=== PATIENT | female | born 1950 | race Caucasian/White ===

== ENCOUNTER 2017-08-12 19:49 | Inpatient (IN) | payer MEDICARE, MEDICAID ==
--- NOTE | 2017-08-12 20:24 | ED Physician Chart ---
ED Chief Complaint/HPI - Patient Information Date Seen:: 08/12/17 Time Seen:: 20:00 Chief Complaint:: Agitation History of Present Illness:: onset x 2 days of agitation and hostile behavior; no report of SIs, H/As, neck pain, C/P, SOB, Abd. Pain, A/N/V/D/C, fever, chills, or urinary s/s Allergies:: Allergies Allergy/AdvReac Type Severity Reaction Status Date / Time carbamazepine [From Tegretol] Allergy Verified 08/12/17 20:08 Historian:: Patient, EMS Review:: Nurse's Note Reviewed, Old Chart Reviewed, EMS run form Reviewed ED Review of Systems - Review of Systems General/Constitutional: No fever, No chills, No weight loss, No weakness, No diaphoresis, No edema, No loss of appetite Skin: No skin lesions, No rash, No bruising Head: No headache, No light-headedness Eyes: No loss of vision, No pain, No diplopia ENT: No earache, No nasal drainage, No sore throat, No tinnitus Neck: No neck pain, No swelling, No thyromegaly, No stiffness, No mass noted Cardio Vascular: No chest pain, No palpitations, No PND, No orthopnea, No edema Pulmonary: No SOB, No cough, No sputum, No wheezing GI: No nausea, No vomiting, No diarrhea, No pain, No melena, No hematochezia, Constipation, No hematemesis G/U: No dysuria, No frequency, No hematuria, No nacturia 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: No vaginal discharge, No abnormal vaginal bleed, No contraction Musculoskeletal: No bone or joint pain, No back pain, No muscle pain Endocrine: No polyuria, No polydipsia Psychiatric: Prior psych history, No depression, Anxiety, No suicidal ideation, No homicidal ideation, No auditory hallucination, No visual hallucination Hematopoietic: No bruising, No lymphadenopathy Allergic/Immuno: No urticaria, No angioedema Neurological: No syncope, No focal symptoms, No weakness, No paresthesia, No headache, No seizure, No dizziness, No confusion, No vertigo ED Past Medical History - Past Medical History Obtainable: Yes Past Medical History: HTN, DM, Dyslipidemia, PUD/GERD, Thyroid disorder Family History: Diabetes Melitus, HTN Social History: Non Smoker, No Alcohol, No Drug Use, Single, Care Facility Surgical History: Hysterectomy Psychiatricy History: Bipolar Medication: Reviewed Family Medical History - Family Member Mother History Unknown: Yes ED Physical Exam - Physical Examination General/Constitutional: Awake, Well-developed, well-nourished, Alert, No distress, GCS 15, Non-toxic appearing, Ambulatory Head: Atraumatic Eyes: Lids, conjuctiva normal, PERRL, EOMI Skin: Nl inspection, No rash, No skin lesions, No ecchymosis, Well hydrated, No lymphadenopathy ENMT: External ears, nose nl, TM canals nl, Nasal exam nl, Lips, teeth, gums nl , Oropharynx nl, Tonsils nl Neck: Nontender, Full ROM w/o pain, No JVD, No nuchal rigidity, No bruit, No mass, No stridor Respiratory: Nl effort/Exclusion, Clear to Auscultation, No Wheeze/Rhonchi/Rales Cardio Vascular: RRR, No murmur, gallop, rubs, NL S1 S2, Carotid/Femoral/Distal pulses equal bilaterally GI: No tenderness/rebounding/guarding, No organomegaly, No hernia, Normal BS's, Nondistended, No mass/bruits, No McBurney tenderness : No CVA tenderness Extremities: No tenderness or effusion, Full ROM, normal strength in all extremities, No edema, Normal digits & nails Neuro/Psych: Alert/oriented, DTR's symmetric, Normal sensory exam, Normal motor strength, Judgement/insight normal, Mood normal, Normal gait, No focal deficits Other Neuro/Psych comments:: + Psychomotor Agitation; no SIs; Mood/Affect: Stable Misc: Normal back, No paraspinal tenderness ED Labs/Radiology/EKG Results - Lab Results Comments:: H/H: 6.7/20.1 - EKG Interpretations EKG Time:: 20:14 Rate & Rhythm: 90; NSR Comments:: non-specific st-t changes ED Septic Shock - . Is Septic Shock (SBP<90, OR Lactate>4 mmol\L) present?: No ED Reassessment (Disposition) - Reassessment Reassessment Condition:: Improved - Diagnosis Diagnosis:: Severe Anemia - Aftercare/Follow up Instructions Aftercare/Follow-Up Instructions:: Counseled pt regarding lab results/diagnosis & need follow up, Counseled pt & family regarding lab results/diagnosis & need follow up - Patient Disposition Discharge/Transfer:: Acute Care w/in this hosp Accepting Physician:: Dr. Davey Time Called:: 2144 Time Responded:: 21:45 Admitted to:: Med/Surg Spoke to:: Dr. Davey Admitting Medical Physician:: Dr. Davey Condition at Disposition:: Stable, Improved
[2017-08-12 20:36] LABS: % BASOPHILS 1.4 % (0.0-2.0); % EOSINOPHILS 3.9 % (0.0-5.0); % LYMPHOCYTES 21.3 % (20.0-50.0); % MONOCYTES 5.2 % (2.0-10.0); % NEUTROPHILS 68.2 % (40.0-80.0); BASOPHILE ABSOLUTE 0.1 Th/cumm (0-0.2); EOSINOPHILE ABSOLUTE 0.4 Th/cmm (0.1-0.4); MEAN CELL VOLUME 94.7 fl (81-100); MEAN CORPUSCULAR HEMOGLOBIN 31.6 pg (27.0-31.0); MEAN CORPUSCULAR HGB CONC 33.4 pg (28.0-36.0); MEAN PLATELET VOLUME 6.8 fl; MONOCYTE ABSOLUTE 0.5 Th/cmm (0.3-1.0); NEUTROPHILE ABSOLUTE 6.2 Th/cmm (1.8-8.0); PLATELET COUNT 417 Th/cmm (150-400); RED BLOOD COUNT 2.12 Mil/cmm (3.80-5.20); RED CELL DISTRIBUTION WIDTH 19.6 % (11.5-20.0); WHITE BLOOD COUNT 9.2 Th/cmm (4.8-10.8)
[2017-08-12 20:40] LABS: HEMATOCRIT 20.1 % (41.0-60); HEMOGLOBIN 6.7 gm/dL (12-16)
[2017-08-12 20:55] LABS: ACETAMINOPHEN 45.5 ug/mL (10.0-30.0); ALB/GLOB RATIO 1.6 (1.0-1.8); ALBUMIN 3.3 gm/dL (3.7-5.3); ALKALINE PHOSPHATASE 63 U/L (34-104); ANION GAP 10.7 (7.0-16.0); BILIRUBIN,TOTAL 0.2 mg/dL (0.3-1.0); BUN - UREA NITROGEN 21 mg/dL (7-25); CALCIUM SERUM 8.5 mg/dL (8.6-10.3); CARBON DIOXIDE 24.3 mEq/L (21.0-31.0); CHLORIDE 108 mEq/L (98-107); CHOLESTEROL 120 mg/dL (<200); CREATININE - SERUM 0.8 mg/dL (0.6-1.2); GFR AFRICAN-AMERICAN > 60.0 ml/min (>90); GFR NON AFRICAN-AMERICAN > 60.0 ml/min; GLUCOSE 115 mg/dL (70-105); HDL -HIGH DENSITY LIPOPROTEIN 42 mg/dL (23-92); SGOT 13 U/L (13-39); SGPT/ALT 17 U/L (7-52); SODIUM SERUM 139 mEq/L (136-145); TOTAL PROTEIN,SERUM 5.4 gm/dL (6.0-8.3); TRIGLYCERIDES 146 mg/dL (<150)
[2017-08-12 21:10] LABS: SALICYLATES (ASPIRIN) < 25.0 mg/L (30.0-100.0)
[2017-08-12] MEDS ORDERED: Morphine Sulfate 2 mg/mL 1mL Syr IV STA (21:59)
[2017-08-12] MEDS ORDERED: Morphine Sulfate 4 mg/mL 1mL Syr IV STA (21:59)
[2017-08-12] MEDS ORDERED: Morphine Sulfate 4 mg/mL 1mL Syr ONE (22:08)
[2017-08-12] MEDS ORDERED: Sodium Chloride 0.45% 1,000 ML IV SCH (22:54)
[2017-08-12] MEDS ORDERED: HYDROmorphone 1 mg/mL 1mL Syr IVP PRN ×2 (22:54)
[2017-08-13 01:30] VITALS: BP 149/80
[2017-08-13] MEDS ORDERED: Pneumococcal Vaccine 0.5 mL Vial IM ONE (01:49)
[2017-08-13] MEDS ORDERED: HYDROmorphone 2 mg/mL 1mL Vial ONE (04:22)
[2017-08-13 05:58] LABS: % BASOPHILS 0.7 % (0.0-2.0); % EOSINOPHILS 3.6 % (0.0-5.0); % MONOCYTES 4.1 % (2.0-10.0); % NEUTROPHILS 76.6 % (40.0-80.0); BASOPHILE ABSOLUTE 0.1 Th/cumm (0-0.2); EOSINOPHILE ABSOLUTE 0.4 Th/cmm (0.1-0.4); HEMATOCRIT 21.3 % (41.0-60); LYMPHOCYTE ABSOLUTE 1.7 Th/cmm (1.5-3.0); MEAN CELL VOLUME 94.4 fl (81-100); MEAN CORPUSCULAR HEMOGLOBIN 30.9 pg (27.0-31.0); MEAN CORPUSCULAR HGB CONC 32.8 pg (28.0-36.0); MEAN PLATELET VOLUME 7.2 fl; MONOCYTE ABSOLUTE 0.5 Th/cmm (0.3-1.0); NEUTROPHILE ABSOLUTE 8.3 Th/cmm (1.8-8.0); PLATELET COUNT 453 Th/cmm (150-400); RED BLOOD COUNT 2.25 Mil/cmm (3.80-5.20); RED CELL DISTRIBUTION WIDTH 19.5 % (11.5-20.0)
[2017-08-13 06:07] LABS: ANION GAP 11.5 (7.0-16.0); BUN - UREA NITROGEN 19 mg/dL (7-25); CALCIUM SERUM 8.4 mg/dL (8.6-10.3); CARBON DIOXIDE 21.3 mEq/L (21.0-31.0); CHLORIDE 108 mEq/L (98-107); CREATININE - SERUM 0.8 mg/dL (0.6-1.2); GFR AFRICAN-AMERICAN > 60.0 ml/min (>90); GFR NON AFRICAN-AMERICAN > 60.0 ml/min; GLUCOSE 151 mg/dL (70-105); POTASSIUM SERUM 3.8 mEq/L (3.5-5.1); SODIUM SERUM 137 mEq/L (136-145)
[2017-08-13] MEDS ORDERED: Morphine Sulfate 4 mg/mL 1mL Syr IVP PRN (07:51)
[2017-08-13] MEDS ORDERED: VTE Chemical Prophylaxis Screen/Admission MC PRN (09:23)
[2017-08-13] MEDS: Morphine Sulfate 4 mg/mL 1mL Syr IVP PRN ×2 (13:01→21:00)
[2017-08-13] MEDS: Ferrous Sulfate 325 MG TAB PO SCH (17:57)
[2017-08-13] MEDS: Lactulose 10 Gm/15 mL 30mL UDC PO SCH (18:11)
[2017-08-13] MEDS: Atorvastatin Calcium 10 MG TAB PO SCH (20:58)
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
[2017-08-13 21:53] LABS: A1C % 4.8 % (4.0-6.0)
[2017-08-14 06:30] LABS: % BASOPHILS 0.6 % (0.0-2.0); % EOSINOPHILS 1.8 % (0.0-5.0); % LYMPHOCYTES 22.4 % (20.0-50.0); % MONOCYTES 4.9 % (2.0-10.0); % NEUTROPHILS 70.3 % (40.0-80.0); BASOPHILE ABSOLUTE 0.1 Th/cumm (0-0.2); EOSINOPHILE ABSOLUTE 0.2 Th/cmm (0.1-0.4); HEMATOCRIT 21.4 % (41.0-60); MEAN CELL VOLUME 94.2 fl (81-100); MEAN CORPUSCULAR HGB CONC 32.9 pg (28.0-36.0); MEAN PLATELET VOLUME 7.2 fl; MONOCYTE ABSOLUTE 0.4 Th/cmm (0.3-1.0); NEUTROPHILE ABSOLUTE 6.2 Th/cmm (1.8-8.0); PLATELET COUNT 482 Th/cmm (150-400); RED BLOOD COUNT 2.28 Mil/cmm (3.80-5.20); RED CELL DISTRIBUTION WIDTH 18.1 % (11.5-20.0); WHITE BLOOD COUNT 8.9 Th/cmm (4.8-10.8)
[2017-08-14 06:36] LABS: ALB/GLOB RATIO 1.4 (1.0-1.8); ALBUMIN 3.6 gm/dL (3.7-5.3); ALKALINE PHOSPHATASE 71 U/L (34-104); ANION GAP 11.5 (7.0-16.0); BILIRUBIN,TOTAL 0.2 mg/dL (0.3-1.0); BUN - UREA NITROGEN 13 mg/dL (7-25); CALCIUM SERUM 8.9 mg/dL (8.6-10.3); CARBON DIOXIDE 24.3 mEq/L (21.0-31.0); CHLORIDE 107 mEq/L (98-107); CREATININE - SERUM 0.7 mg/dL (0.6-1.2); GFR AFRICAN-AMERICAN > 60.0 ml/min (>90); GFR NON AFRICAN-AMERICAN > 60.0 ml/min; GLUCOSE 150 mg/dL (70-105); POTASSIUM SERUM 3.8 mEq/L (3.5-5.1); SGOT 16 U/L (13-39); SGPT/ALT 19 U/L (7-52); SODIUM SERUM 139 mEq/L (136-145); TOTAL PROTEIN,SERUM 6.1 gm/dL (6.0-8.3)
[2017-08-14 06:38] LABS: HEMOGLOBIN 7.1 gm/dL (12-16)
[2017-08-14] MEDS: Ferrous Sulfate 325 MG TAB PO SCH ×2 (08:49→17:22)
[2017-08-14] MEDS: Lactulose 10 Gm/15 mL 30mL UDC PO SCH ×2 (08:52→17:23)
[2017-08-14] MEDS: Pantoprazole 40 mg EC Tab PO SCH (08:57)
[2017-08-14] MEDS ORDERED: Non-Formulary Item 1 EA (Levothyroxine Sodium [Levothyroxine Sodium] 137 MCG) PO SCH (09:00)
[2017-08-14 12:39] LABS: ABSOLUTE RETICULOCYTE 119.9 Th/cmm; CORRECTED RETICULOCYTE COUNT 2.5 % (0.5-1.5); RBC RETICULOCYTE COUNT 2.35 Mil/cmm; RETICULOCYTES % COUNTED 5.1 % (0.5-1.5)
[2017-08-14 12:40] LABS: HEMATOCRIT 22.4 % (37.0-47.0)
--- NOTE | 2017-08-14 15:44 | Consultation ---
DATE OF CONSULTATION: 08/14/2017 HEMATOLOGY ONCOLOGY CONSULTATION REFERRING PHYSICIAN: July Davey M.D. REASON FOR CONSULTATION: Anemia. HISTORY OF PRESENT ILLNESS: The patient is a 67-year-old female who was admitted because of anxiety and depression and agitation and then she was found to have severe anemia; therefore, she was admitted to the medical floor instead of Geropsych floor. Her hemoglobin is 7 grams, therefore I was asked to evaluate. The patient states that she had history of anemia in the past and she was transfused multiple units of packed red blood cells in 2014. She also underwent upper and lower endoscopy at that time and that she was not informed of any concrete diagnosis. PAST MEDICAL HISTORY: Hypertension, diabetes, dyslipidemia, peptic ulcer disease, thyroid disorder, anxiety, and depression. PAST SURGICAL HISTORY: Hysterectomy. SOCIAL HISTORY: Denies smoking or drinking. FAMILY HISTORY: Irrelevant. PHYSICAL EXAMINATION: GENERAL: She is awake, alert, oriented, anxious looking. VITAL SIGNS: Temperature 98.9, blood pressure 124/60. HEENT: Atraumatic, pale complexion. NECK: No lymphadenopathy. CHEST: Clear. ABDOMEN: Soft. No organomegaly or ascites. EXTREMITIES: No edema. LABORATORY WORK: Hemoglobin 7.1, normal MCV, WBC 8.9, platelets 482. Chemistry normal. Creatinine 0.7, normal liver functions and bilirubin. Toxicology screen, elevated acetaminophen level to 45. ASSESSMENT: Normocytic anemia. We will require comprehensive anemia workup with stool occult blood, iron studies, B12, and folate level and urinalysis. The patient is not dizzy; however, generally weak at time and proceed with transfusion of 1 unit of packed red blood cells after obtaining all the anemia workup. Thank you, Dr. Davey for the opportunity to participate in the care of this interesting case. JOB# [id number]
[2017-08-14] MEDS: Atorvastatin Calcium 10 MG TAB PO SCH (21:50)
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
--- NOTE | 2017-08-15 02:21 | Progress Notes ---
DATE: 08/14/2017 Case was discussed with staff of the patient, reviewed records. The patient reports she is being anxious. She slept better yesterday because she took the trazodone. She reports she has an endoscopy tomorrow and that make her feel very anxious. She is still overwhelmed to the situation. She denies that she wants to harm herself or anybody unpredictable, impulsive, needing redirection. She said however she never tried to harm himself. No side effects from the medication, no sedation, no nausea and refused to be on any antidepressant. She tried them all before, they did not help and will continue to offer the patient in group therapy, milieu therapy, adjust the medication as needed. [facility]# [id number]
--- NOTE | 2017-08-15 05:22 | Consultation ---
DATE OF CONSULTATION: 08/14/2017 REASON FOR CONSULT: Anemia. HISTORY OF PRESENT ILLNESS: This consult was obtained through the courtesy of Dr. Davey for this 67-year-old who has history of diabetes, hypertension, anemia, presented to the hospital because of foot pain. She was found to be anemic, which is getting worse, so GI consult was called in for further evaluation. The patient apparently has been anemic before. She had some workup done years ago. She had attempted colonoscopy 3 years ago and she was told it was not clean, but nothing else was done and she had endoscopy several years ago. The patient denies any overt GI bleed. Supposedly has been in several hospitals for a long period of time and she has an accident, something nervous, meaning she was favoring one side of her body, and she was occasionally confused. She was hospitalized for couple of times, she claims once was for 10 months, another one for 6 months and the patient claims that she had a capsule endoscopy also at another facility. PAST MEDICAL HISTORY: Diabetes, hypertension, anemia. PAST SURGICAL HISTORY: She had several foot surgeries. She had hysterectomy followed by 4 laparoscopic surgeries to correct some complications related to that and she had nose surgery. SOCIAL HISTORY: Denies smoking or drugs. She has drank socially up to 12 years ago. FAMILY HISTORY: Mother had breast cancer. Father had brain cancer. REVIEW OF SYSTEMS: She claims she was diagnosed with Crohn's or IBS, more than likely IBS. She denies any weight loss. There is no nausea, vomiting, diarrhea, constipation or overt GI bleed. ALLERGIES: CARBAMAZEPINE. MEDICATIONS: The patient is on [place], Lipitor, Dulcolax, Klonopin, Colace, iron, Lasix, lactulose, levothyroxine, Ativan, Glucophage, morphine, Naprosyn, Zofran, OxyContin, Protonix, Restoril, Desyrel. PHYSICAL EXAMINATION: GENERAL: The patient is awake, oriented to self, place, and time, in no acute distress. VITAL SIGNS: Blood pressure is 124/59, heart rate 98, respiratory rate 18, temperature is 98.9. HEAD AND NECK: Pupils reactive to light. Extraocular muscles intact. Sclerae are anicteric. Conjunctivae pale. Oral cavity, no lesion. NECK: Supple, no jugular venous distention, no carotid bruit, no lymph node. CHEST: Good respiratory movements. LUNGS: Clear to auscultation. CARDIOVASCULAR: Regular rate and rhythm. No murmur or gallop. ABDOMEN: Soft, positive bowel sounds. Abdomen was not tender. EXTREMITIES: Lower extremities, no edema. CENTRAL NERVOUS SYSTEM: Grossly nonfocal. LABORATORY AND DIAGNOSTIC DATA: Hemoglobin 7.1, was as low as 6.7; hematocrit 21.4, platelets 482, normal MCV and RDW, white count was 11 and now it is 8.9. Liver enzymes were normal. Albumin is 3.6. The patient has a high Tylenol level, this was 2 days ago, we will recheck another level now. IMPRESSION: A 67-year-old with anemia, rule out GI blood loss versus chronic disease versus hemolysis. RECOMMENDATIONS: 1. Check haptoglobin, iron, TIBC, ferritin, B12, folic acid. Check stool for occult blood, EGD and colonoscopy. If negative, then capsule endoscopy. Further recommendations to follow. 2. High Tylenol level, at this time I am not sure, this has been already 2 days since it has been done, so we will check another stat level now and then further recommendations to follow. Other medical problem such as diabetes, hypertension etc., as per Dr. Davey. Thank you Dr. Davey for allowing me to participate in the care of the patient. If you have any further questions, please let me know. JOB# [id number] NETO
[2017-08-15] MEDS: Pantoprazole 40 mg EC Tab PO SCH (06:46)
[2017-08-15] MEDS: Ferrous Sulfate 325 MG TAB PO SCH ×2 (09:15→17:19)
[2017-08-15] MEDS: Lactulose 10 Gm/15 mL 30mL UDC PO SCH ×2 (09:15→17:19)
[2017-08-15] MEDS ORDERED: Magnesium Citrate 1.75 GM/300 mL Bottle PO ONE (11:05)
--- NOTE | 2017-08-15 12:15 | General Progress Note ---
Subjective - Review of Systems Events since last encounter: patient awake alert in no distress Objective - Results Result Diagrams: 08/14/17 11:34 08/14/17 05:50 Recent Labs: Laboratory Last Values WBC 8.9 Th/cmm (4.8-10.8) 08/14/17 05:50 RBC 2.28 Mil/cmm (3.80-5.20) L 08/14/17 05:50 Hgb 7.1 gm/dL (12-16) L* 08/14/17 05:50 Hct 22.4 % (37.0-47.0) L* 08/14/17 11:34 MCV 94.2 fl (81-100) 08/14/17 05:50 MCH 31.0 pg (27.0-31.0) 08/14/17 05:50 MCHC Differential 32.9 pg (28.0-36.0) 08/14/17 05:50 RDW 18.1 % (11.5-20.0) 08/14/17 05:50 Plt Count 482 Th/cmm (150-400) H 08/14/17 05:50 MPV 7.2 fl 08/14/17 05:50 Neutrophils % 70.3 % (40.0-80.0) 08/14/17 05:50 Lymphocytes % 22.4 % (20.0-50.0) 08/14/17 05:50 Monocytes % 4.9 % (2.0-10.0) 08/14/17 05:50 Eosinophils % 1.8 % (0.0-5.0) 08/14/17 05:50 Basophils % 0.6 % (0.0-2.0) 08/14/17 05:50 Total Retics Counted 5.1 % (0.5-1.5) H 08/14/17 11:34 Absolute Retic 119.9 Th/cmm 08/14/17 11:34 Corrected Retic Count 2.5 % (0.5-1.5) H 08/14/17 11:34 Sodium 139 mEq/L (136-145) 08/14/17 05:50 Potassium 3.8 mEq/L (3.5-5.1) 08/14/17 05:50 Chloride 107 mEq/L (98-107) 08/14/17 05:50 Carbon Dioxide 24.3 mEq/L (21.0-31.0) 08/14/17 05:50 Anion Gap 11.5 (7.0-16.0) 08/14/17 05:50 BUN 13 mg/dL (7-25) 08/14/17 05:50 Creatinine 0.7 mg/dL (0.6-1.2) 08/14/17 05:50 Est GFR ( Amer) > 60.0 ml/min (>90) 08/14/17 05:50 Est GFR (Non-Af Amer) > 60.0 ml/min 08/14/17 05:50 BUN/Creatinine Ratio 18.6 08/14/17 05:50 Glucose 150 mg/dL (70-105) H 08/14/17 05:50 POC Glucose 111 MG/DL (70 - 105) H 08/12/17 23:21 Hemoglobin A1c % 4.8 % (4.0-6.0) 08/12/17 23:00 Calcium 8.9 mg/dL (8.6-10.3) 08/14/17 05:50 Total Bilirubin 0.2 mg/dL (0.3-1.0) L 08/14/17 05:50 AST 16 U/L (13-39) 08/14/17 05:50 ALT 19 U/L (7-52) 08/14/17 05:50 Alkaline Phosphatase 71 U/L (34-104) 08/14/17 05:50 Total Protein 6.1 gm/dL (6.0-8.3) 08/14/17 05:50 Albumin 3.6 gm/dL (3.7-5.3) L 08/14/17 05:50 Globulin 2.5 gm/dL 08/14/17 05:50 Albumin/Globulin Ratio 1.4 (1.0-1.8) 08/14/17 05:50 Triglycerides 146 mg/dL (<150) 08/12/17 20:30 Cholesterol 120 mg/dL (<200) 08/12/17 20:30 LDL Cholesterol Direct 59 mg/dL (75-193) L 08/12/17 20:30 HDL Cholesterol 42 mg/dL (23-92) 08/12/17 20:30 TSH 1.30 uIU/ml (0.34-5.60) 08/12/17 20:30 Salicylates < 25.0 mg/L (30.0-100.0) L 08/12/17 20:30 Acetaminophen < 10.0 ug/mL (10.0-30.0) L 08/14/17 05:50 Ethyl Alcohol < 10 mg/dL (0-10) 08/12/17 20:30 RPR NONREACTIVE (NONREACTIVE) 08/12/17 20:30 Blood Type A POSITIVE 08/13/17 08:55 Antibody Screen NEGATIVE 08/13/17 08:55 Crossmatch See Detail 08/13/17 08:55 - Physical Exam Vitals and I&O: Vital Signs Temp 98.4 F 08/15/17 08:00 Pulse 103 08/15/17 08:00 Resp 18 08/15/17 08:00 BP 100/48 08/15/17 09:19 Pulse Ox 97 08/15/17 08:00 Intake & Output 08/14/17 08/15/17 08/15/17 18:59 06:59 18:59 Intake Total 650 Output Total 2 Balance 648 Weight (lbs) 72.121 kg 74.843 kg Intake: Oral 650 Output: Stool 2 Other: # Voids 4 Stool Characteristics Soft Soft Brown Brown Weight Source Bedscale Bedscale Active Medications: Current Medications Acetaminophen/Hydrocodone Bitart ([place] 5mg/325mg) 1 tab PO Q4H PRN PRN Reason: for moderate pain Stop: 10/13/17 06:12 Atorvastatin Calcium (Lipitor) 20 mg PO HS [facility] Stop: 10/12/17 20:59 Last Admin: 08/14/17 21:50 Dose: 20 mg Clonazepam (Klonopin) 1 mg PO HS [facility] PRN Reason: Protocol Stop: 10/12/17 20:59 Last Admin: 08/14/17 23:42 Dose: 1 mg Docusate Sodium (Colace) 100 mg PO BID [facility] Stop: 10/12/17 16:59 Last Admin: 08/15/17 09:14 Dose: 100 mg Ferrous Sulfate (Iron) 325 mg PO BID [facility] Stop: 10/12/17 16:59 Last Admin: 08/15/17 09:15 Dose: 325 mg Furosemide (Lasix) 40 mg PO DAILY [facility] Stop: 10/13/17 08:59 Last Admin: 08/15/17 09:19 Dose: Not Given Sodium Chloride (Nacl 0.45%) 1,000 mls @ 100 mls/hr IV .Q10H [facility] Stop: 10/11/17 22:53 Last Admin: 08/13/17 00:00 Dose: 100 mls/hr Lactulose (Cephulac) 15 gm PO BID [facility] Stop: 10/12/17 16:59 Last Admin: 08/15/17 09:15 Dose: 15 gm Levothyroxine Sodium 0.112 mg/ (Levothyroxine Sodium 0.025 mg) 0.137 mg PO QDAC [facility] Stop: 10/13/17 07:29 Last Admin: 08/15/17 06:49 Dose: 0.137 mg Lorazepam (Ativan) 1 mg PO Q6HR PRN; Protocol PRN Reason: Anxiety Stop: 10/12/17 13:13 Last Admin: 08/15/17 06:01 Dose: 1 mg Magnesium Citrate (Citroma) 17.5 gm PO X1 ONE Stop: 08/15/17 11:06 Metformin HCl (Glucophage) 500 mg PO BIDWM [facility] Stop: 10/12/17 17:59 Last Admin: 08/15/17 09:14 Dose: 500 mg Miscellaneous (Vte Chemical Prophylaxis Screen/ Admission) 1 ea [facility] PRN PRN PRN Reason: PROTOCOL Stop: 10/12/17 09:22 Morphine Sulfate (Morphine) 2 mg IVP Q4H PRN PRN Reason: Pain (Moderate) Stop: 10/12/17 07:50 Last Admin: 08/13/17 09:23 Dose: 2 mg Morphine Sulfate (Morphine) 4 mg IVP Q4H PRN PRN Reason: Pain (Severe) Stop: 10/12/17 07:51 Last Admin: 08/13/17 21:00 Dose: 4 mg Naproxen (Naprosyn) 375 mg PO BIDWM [facility] Stop: 10/12/17 17:59 Last Admin: 08/15/17 09:19 Dose: Not Given Ondansetron HCl (Zofran) 4 mg IV Q6HR [facility] Stop: 10/12/17 00:00 Last Admin: 08/15/17 06:42 Dose: Not Given Oxycodone HCl (Oxycontin) 20 mg PO Q12HR [facility] Stop: 10/13/17 10:29 Last Admin: 08/15/17 09:15 Dose: 20 mg Pantoprazole Sodium (Protonix) 40 mg PO QDAC [facility] Stop: 10/13/17 07:29 Last Admin: 08/15/17 06:46 Dose: 40 mg Temazepam (Restoril) 15 mg PO HS PRN; Protocol PRN Reason: Insomnia Stop: 10/12/17 13:13 Trazodone HCl (Desyrel) 150 mg PO HS PRN; Protocol PRN Reason: Anxiety Stop: 10/12/17 20:59 Last Admin: 08/14/17 23:44 Dose: 150 mg
[2017-08-15] MEDS: Hydrocodone/APAP 5mg/325mg Tab PO PRN ×3 (12:34→23:12)
[2017-08-15 15:48] LABS: % BASOPHILS 0.7 % (0.0-2.0); BASOPHILE ABSOLUTE 0.1 Th/cumm (0-0.2); EOSINOPHILE ABSOLUTE 0.3 Th/cmm (0.1-0.4); MONOCYTE ABSOLUTE 0.6 Th/cmm (0.3-1.0); NEUTROPHILE ABSOLUTE 6.5 Th/cmm (1.8-8.0)
[2017-08-15 15:53] LABS: % LYMPHOCYTES 25.4 % (20.0-50.0); % MONOCYTES 6.2 % (2.0-10.0); % NEUTROPHILS 64.7 % (40.0-80.0); LYMPHOCYTE ABSOLUTE 2.5 Th/cmm (1.5-3.0); MEAN CELL VOLUME 94.4 fl (81-100); MEAN CORPUSCULAR HEMOGLOBIN 30.3 pg (27.0-31.0); MEAN PLATELET VOLUME 6.9 fl; PLATELET COUNT 511 Th/cmm (150-400); RED BLOOD COUNT 2.14 Mil/cmm (3.80-5.20); RED CELL DISTRIBUTION WIDTH 19.1 % (11.5-20.0)
[2017-08-15 15:59] LABS: HEMOGLOBIN 6.5 gm/dL (12-16)
[2017-08-15 16:00] LABS: HEMATOCRIT 20.3 % (41.0-60)
[2017-08-15 16:16] LABS: INR 0.87 (0.5-1.4); PROTHROMBIN TIME (TEST) 8.9 SECONDS (9.5-11.5)
[2017-08-15] MEDS: Atorvastatin Calcium 10 MG TAB PO SCH (23:12)
--- NOTE | 2017-08-16 02:41 | Progress Notes ---
DATE: 08/15/2017 The patient is currently in med-surg unit. The patient reported that she could not drink the whole thing for the colonoscopy and she decided to cancel it. She will do it in another hospital. That made her agitated because she felt nauseated after she has taken. States it is a big one and usually she is used to taking smaller ones. She does have anemia and she tends to have multiple colonoscopies because every 2 years her blood level will go down or her hemoglobin level go down and at this point, she is compliant with the medication, no side effects, no sedation or nausea. Thank you very much for allowing me to participate in the care of this most interesting lady. The patient denies any intent to harm herself or anybody. Denies any auditory or visual hallucination or paranoia. The patient will need follow up with psychiatrist upon discharge. JOB# [id number]
[2017-08-16 05:50] LABS: % BASOPHILS 0.9 % (0.0-2.0); % LYMPHOCYTES 24.7 % (20.0-50.0); BASOPHILE ABSOLUTE 0.1 Th/cumm (0-0.2); MONOCYTE ABSOLUTE 0.5 Th/cmm (0.3-1.0)
[2017-08-16 05:56] LABS: % EOSINOPHILS 4.4 % (0.0-5.0); % MONOCYTES 6.4 % (2.0-10.0); % NEUTROPHILS 63.6 % (40.0-80.0); EOSINOPHILE ABSOLUTE 0.4 Th/cmm (0.1-0.4); MEAN CORPUSCULAR HEMOGLOBIN 30.1 pg (27.0-31.0); PLATELET COUNT 488 Th/cmm (150-400); RED BLOOD COUNT 2.44 Mil/cmm (3.80-5.20); RED CELL DISTRIBUTION WIDTH 18.8 % (11.5-20.0)
[2017-08-16 06:01] LABS: HEMOGLOBIN 7.4 gm/dL (12-16)
[2017-08-16 06:08] LABS: ANION GAP 8.9 (7.0-16.0); BUN - UREA NITROGEN 10 mg/dL (7-25); CALCIUM SERUM 8.4 mg/dL (8.6-10.3); CARBON DIOXIDE 25.5 mEq/L (21.0-31.0); CHLORIDE 108 mEq/L (98-107); CREATININE - SERUM 0.7 mg/dL (0.6-1.2); GFR AFRICAN-AMERICAN > 60.0 ml/min (>90); GFR NON AFRICAN-AMERICAN > 60.0 ml/min; GLUCOSE 105 mg/dL (70-105); POTASSIUM SERUM 4.4 mEq/L (3.5-5.1); SODIUM SERUM 138 mEq/L (136-145)
[2017-08-16] MEDS: Hydrocodone/APAP 5mg/325mg Tab PO PRN ×2 (07:42→15:57)
[2017-08-16] MEDS: Pantoprazole 40 mg EC Tab PO SCH (07:44)
[2017-08-16] MEDS: Ferrous Sulfate 325 MG TAB PO SCH (08:46)
[2017-08-16] MEDS: Lactulose 10 Gm/15 mL 30mL UDC PO SCH (08:47)
--- NOTE | 2017-08-16 12:22 | General Progress Note ---
Subjective - Review of Systems Service Date: 08/16/17 Objective - Results Result Diagrams: 08/16/17 05:42 08/16/17 05:42 Recent Labs: Laboratory Last Values WBC 8.0 Th/cmm (4.8-10.8) 08/16/17 05:42 RBC 2.44 Mil/cmm (3.80-5.20) L 08/16/17 05:42 Hgb 7.4 gm/dL (12-16) L* 08/16/17 05:42 Hct 23.0 % (41.0-60) L 08/16/17 05:42 MCV 94.0 fl (81-100) 08/16/17 05:42 MCH 30.1 pg (27.0-31.0) 08/16/17 05:42 MCHC Differential 32.0 pg (28.0-36.0) 08/16/17 05:42 RDW 18.8 % (11.5-20.0) 08/16/17 05:42 Plt Count 488 Th/cmm (150-400) H 08/16/17 05:42 MPV 7.0 fl 08/16/17 05:42 Neutrophils % 63.6 % (40.0-80.0) 08/16/17 05:42 Lymphocytes % 24.7 % (20.0-50.0) 08/16/17 05:42 Monocytes % 6.4 % (2.0-10.0) 08/16/17 05:42 Eosinophils % 4.4 % (0.0-5.0) 08/16/17 05:42 Basophils % 0.9 % (0.0-2.0) 08/16/17 05:42 Total Retics Counted 5.1 % (0.5-1.5) H 08/14/17 11:34 Absolute Retic 119.9 Th/cmm 08/14/17 11:34 Corrected Retic Count 2.5 % (0.5-1.5) H 08/14/17 11:34 PT 8.9 SECONDS (9.5-11.5) L 08/15/17 15:43 INR 0.87 (0.5-1.4) 08/15/17 15:43 Sodium 138 mEq/L (136-145) 08/16/17 05:42 Potassium 4.4 mEq/L (3.5-5.1) 08/16/17 05:42 Chloride 108 mEq/L (98-107) H 08/16/17 05:42 Carbon Dioxide 25.5 mEq/L (21.0-31.0) 08/16/17 05:42 Anion Gap 8.9 (7.0-16.0) 08/16/17 05:42 BUN 10 mg/dL (7-25) 08/16/17 05:42 Creatinine 0.7 mg/dL (0.6-1.2) 08/16/17 05:42 Est GFR ( Amer) > 60.0 ml/min (>90) 08/16/17 05:42 Est GFR (Non-Af Amer) > 60.0 ml/min 08/16/17 05:42 BUN/Creatinine Ratio 14.3 08/16/17 05:42 Glucose 105 mg/dL (70-105) 08/16/17 05:42 POC Glucose 111 MG/DL (70 - 105) H 08/12/17 23:21 Hemoglobin A1c % 4.8 % (4.0-6.0) 08/12/17 23:00 Calcium 8.4 mg/dL (8.6-10.3) L 08/16/17 05:42 Total Bilirubin 0.2 mg/dL (0.3-1.0) L 08/14/17 05:50 AST 16 U/L (13-39) 08/14/17 05:50 ALT 19 U/L (7-52) 08/14/17 05:50 Alkaline Phosphatase 71 U/L (34-104) 08/14/17 05:50 Total Protein 6.1 gm/dL (6.0-8.3) 08/14/17 05:50 Albumin 3.6 gm/dL (3.7-5.3) L 08/14/17 05:50 Globulin 2.5 gm/dL 08/14/17 05:50 Albumin/Globulin Ratio 1.4 (1.0-1.8) 08/14/17 05:50 Triglycerides 146 mg/dL (<150) 08/12/17 20:30 Cholesterol 120 mg/dL (<200) 08/12/17 20:30 LDL Cholesterol Direct 59 mg/dL (75-193) L 08/12/17 20:30 HDL Cholesterol 42 mg/dL (23-92) 08/12/17 20:30 TSH 1.30 uIU/ml (0.34-5.60) 08/12/17 20:30 Salicylates < 25.0 mg/L (30.0-100.0) L 08/12/17 20:30 Acetaminophen < 10.0 ug/mL (10.0-30.0) L 08/14/17 05:50 Ethyl Alcohol < 10 mg/dL (0-10) 08/12/17 20:30 RPR NONREACTIVE (NONREACTIVE) 08/12/17 20:30 Blood Type A POSITIVE 08/13/17 08:55 Antibody Screen NEGATIVE 08/13/17 08:55 Crossmatch See Detail 08/13/17 08:55 - Physical Exam Vitals and I&O: Vital Signs Temp 96.7 F 08/16/17 09:07 Pulse 101 08/16/17 09:07 Resp 18 08/16/17 09:07 BP 123/79 08/16/17 09:07 Pulse Ox 95 08/16/17 09:07 Intake & Output 08/15/17 08/16/17 08/16/17 18:59 06:59 18:59 Weight (lbs) 72.575 kg Other: Stool Characteristics Soft Soft Brown Brown Weight Source Bedscale Active Medications: Current Medications Acetaminophen/Hydrocodone Bitart ([place] 5mg/325mg) 1 tab PO Q4H PRN PRN Reason: for moderate pain Stop: 10/13/17 06:12 Last Admin: 08/16/17 07:42 Dose: 1 tab Atorvastatin Calcium (Lipitor) 20 mg PO HS [facility] Stop: 10/12/17 20:59 Last Admin: 08/15/17 23:12 Dose: 20 mg Clonazepam (Klonopin) 1 mg PO HS [facility] PRN Reason: Protocol Stop: 10/12/17 20:59 Last Admin: 08/15/17 23:12 Dose: 1 mg Docusate Sodium (Colace) 100 mg PO BID [facility] Stop: 10/12/17 16:59 Last Admin: 08/16/17 08:47 Dose: Not Given Ferrous Sulfate (Iron) 325 mg PO BID [facility] Stop: 10/12/17 16:59 Last Admin: 08/16/17 08:46 Dose: 325 mg Furosemide (Lasix) 40 mg PO DAILY [facility] Stop: 10/13/17 08:59 Last Admin: 08/16/17 08:47 Dose: Not Given Sodium Chloride (Nacl 0.45%) 1,000 mls @ 100 mls/hr IV .Q10H [facility] Stop: 10/11/17 22:53 Last Admin: 08/13/17 00:00 Dose: 100 mls/hr Lactulose (Cephulac) 15 gm PO BID [facility] Stop: 10/12/17 16:59 Last Admin: 08/16/17 08:47 Dose: Not Given Levothyroxine Sodium 0.112 mg/ (Levothyroxine Sodium 0.025 mg) 0.137 mg PO QDAC [facility] Stop: 10/13/17 07:29 Last Admin: 08/16/17 07:44 Dose: 0.137 mg Lorazepam (Ativan) 1 mg PO Q6HR PRN; Protocol PRN Reason: Anxiety Stop: 10/12/17 13:13 Last Admin: 08/16/17 11:00 Dose: 1 mg Metformin HCl (Glucophage) 500 mg PO BIDWM [facility] Stop: 10/12/17 17:59 Last Admin: 08/16/17 08:46 Dose: 500 mg Miscellaneous (Vte Chemical Prophylaxis Screen/ Admission) 1 ea [facility] PRN PRN PRN Reason: PROTOCOL Stop: 10/12/17 09:22 Morphine Sulfate (Morphine) 2 mg IVP Q4H PRN PRN Reason: Pain (Moderate) Stop: 10/12/17 07:50 Last Admin: 08/13/17 09:23 Dose: 2 mg Morphine Sulfate (Morphine) 4 mg IVP Q4H PRN PRN Reason: Pain (Severe) Stop: 10/12/17 07:51 Last Admin: 08/13/17 21:00 Dose: 4 mg Naproxen (Naprosyn) 375 mg PO BIDWM [facility] Stop: 10/12/17 17:59 Last Admin: 08/16/17 08:47 Dose: Not Given Ondansetron HCl (Zofran) 4 mg IV Q6HR [facility] Stop: 10/12/17 00:00 Last Admin: 08/16/17 11:47 Dose: Not Given Oxycodone HCl (Oxycontin) 20 mg PO Q12HR [facility] Stop: 10/13/17 10:29 Last Admin: 08/16/17 08:46 Dose: 20 mg Pantoprazole Sodium (Protonix) 40 mg PO QDAC [facility] Stop: 10/13/17 07:29 Last Admin: 08/16/17 07:44 Dose: 40 mg Temazepam (Restoril) 15 mg PO HS PRN; Protocol PRN Reason: Insomnia Stop: 10/12/17 13:13 Trazodone HCl (Desyrel) 150 mg PO HS PRN; Protocol PRN Reason: Anxiety Stop: 10/12/17 20:59 Last Admin: 08/16/17 02:02 Dose: 150 mg General: Alert, Oriented x3 HEENT: Atraumatic Neck: Supple Cardiovascular: Regular rate Abdomen: Soft - Procedures Procedures: Procedures Procedure Code Date BLOOD TRANSFUSION SERVICE 47601 08/12/17 TRANSFUSE NONAUT RED BLOOD CELLS IN PERIPH VEIN, [facility] [id number] 08/12/17 Assessment/Plan - Assessment Assessment: * Chronic anemia * Pt. refused endoscopy and blood work
[2017-08-17 01:21] LABS: HAPTOGLOBIN 293 mg/dL (34-200); IRON LC 23 ug/dL (27-139); TIBC (LC) 311 ug/dL (250-450); UIBC 288 ug/dL (118-369)
[2017-08-17 04:12] LABS: FOLIC ACID >20.0 ng/mL (>3.0)
[2017-08-17 10:43] LABS: IRON LC 22; TIBC (LC) 310; UIBC 288
[2017-08-18 14:17] LABS: FERRITIN 42 ng/mL (15-150)
== END 2017-08-16 17:00 | DRG 378 ==
LOC: ER 19:49 → MSI 22:52
PROVIDERS: ADMIT Internal Medicine; ATTEND Internal Medicine
PROC: 3E0234Z Introduction of Serum, Toxoid and Vaccine into Muscle, Percutaneous Approach (ICD-10-PCS; 2017-08-13)
PROC: 30233N1 Transfusion of Nonautologous Red Blood Cells into Peripheral Vein, Percutaneous Approach (ICD-10-PCS; principal; 2017-08-15)
DX: K92.2 Gastrointestinal hemorrhage, unspecified (principal); F31.5 Bipolar disorder, current episode depressed, severe, with psychotic features; D53.9 Nutritional anemia, unspecified; E11.40 Type 2 diabetes mellitus with diabetic neuropathy, unspecified; F41.1 Generalized anxiety disorder; I10 Essential (primary) hypertension; R45.87 Impulsiveness; Z53.29 Procedure and treatment not carried out because of patient's decision for other reasons; K21.9 Gastro-esophageal reflux disease without esophagitis; E78.5 Hyperlipidemia, unspecified; F41.9 Anxiety disorder, unspecified; Z88.8 Allergy status to other drugs, medicaments and biological substances; Z23 Encounter for immunization; Z87.11 Personal history of peptic ulcer disease; Z83.3 Family history of diabetes mellitus; Z82.49 Family history of ischemic heart disease and other diseases of the circulatory system; Z90.710 Acquired absence of both cervix and uterus; Z71.89 Other specified counseling; Z80.8 Family history of malignant neoplasm of other organs or systems; Z80.3 Family history of malignant neoplasm of breast; Z79.899 Other long term (current) drug therapy
CPT/HCPCS: 36415-UA; 80048-TC; 80053-TC; 80061-TC; 80320-TC; 80329-TC; 82607-90; 82728-90; 82746-90; 82948-90; 83010-90; 83036-90; 83540-90; 83550-90; 84443-TC; 85025-TC; 85044-TC; 85610-TC; 86592-TC; 86850-TC; 86900-TC; 86901-TC; 86922-TC; 93005; 96374; J1170; J2405; J7030; P9040; Z7610

== ENCOUNTER 2017-08-16 17:03 | Inpatient (IN) | payer MEDICARE, MEDICAID ==
[2017-08-16 18:16] VITALS: BP 168/89
--- NOTE | 2017-08-16 20:37 | History & Physical ---
ADMIT DATE: 08/16/2017 HISTORY OF PRESENT ILLNESS: The patient is very well known to me. The patient is a 67-year-old female patient well known to me from the assisted, came in ER because of severe agitation, found to have severe anemia requiring blood transfusion, history of peptic ulcer disease, also history of a left lower foot status post surgery and severe chronic pain syndrome, drug seeking behavior. The patient was initially admitted to the medical floor, was given blood transfusion. The patient improved as well with GI workup. Endoscopies were done and the patient was improving and hemoglobin was stable, was transferred to Geropsych Unit for psychiatric and agitation, psychosis problem, and I will follow the patient medically. PHYSICAL EXAMINATION: HEENT: Head normal. ENT: Normal. NECK: Supple, nontender. LUNGS: Clear. CARDIOVASCULAR SYSTEM: S1, S2 heard. ABDOMEN: Soft. Bowel sounds heard. CENTRAL NERVOUS SYSTEM: The patient is agitated. DIAGNOSES: Acute psychosis; severe anemia, status post blood transfusion; history of peptic ulcer disease; she is status post surgery to the left lower foot; and chronic pain syndrome. JOB# [id number]
[2017-08-16] MEDS: Hydrocodone/APAP 5mg/325mg Tab PO PRN (21:15)
--- NOTE | 2017-08-17 00:06 | Progress Notes ---
DATE: 08/16/2017 SUBJECTIVE: Case was discussed with the staff of the patient and reviewed records. The patient reports that she has been waiting to go back to the detention in [place] and she is frustrated being here. She reports that she started moving her bowels only today though she took the medication for the colonoscopy to clean her bowels 3 days ago. She reported no current intent to harm herself or anybody. She denies any auditory or visual hallucination or paranoia. No side effects with the medication, no sedation, no nausea. The patient needs to follow up with the psychiatrist upon discharge. Thank you very much for allowing me to participate in the care of this most interesting lady. [facility]# [id number]
[2017-08-17] MEDS: Hydrocodone/APAP 5mg/325mg Tab PO PRN ×2 (03:40→12:21)
[2017-08-17] MEDS: Pantoprazole 40 mg EC Tab PO SCH (06:53)
[2017-08-17] MEDS ORDERED: Levothyroxine 0.112 Mg Tab PO SCH (07:30)
[2017-08-17] MEDS ORDERED: Non-Formulary Item 1 EA (Levothyroxine Sodium [Levothyroxine Sodium] 137 MCG) PO SCH (09:00)
[2017-08-17] MEDS ORDERED: Pantoprazole 40 mg EC Tab PO SCH (09:00)
[2017-08-17] MEDS: Lactulose 10 Gm/15 mL 30mL UDC PO SCH ×2 (09:07→16:35)
[2017-08-17] MEDS: Ferrous Sulfate 325 MG TAB PO SCH ×2 (09:07→16:35)
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
--- NOTE | 2017-08-17 20:23 | Internal Medicine Prog Note ---
Internal Medicine Subjective - Subjective Service Date: 08/17/17 Patient seen and examined:: with staff Patient is:: awake Per staff patient has:: tolerating meds Internal Medicine Objective - Physical Exam Vitals and I&O: Vital Signs Temp 98.1 F 08/17/17 16:19 Pulse 90 08/17/17 16:19 Resp 19 08/17/17 16:19 BP 120/76 08/17/17 16:19 Pulse Ox 97 08/17/17 16:19 Intake & Output 08/17/17 08/17/17 08/18/17 06:59 18:59 06:59 Intake Total 420 1200 Balance 420 1200 Intake: Oral 420 1200 Other: # Voids 2 2 # Bowel Movements 0 Active Medications: Current Medications Acetaminophen/Hydrocodone Bitart ([place] 5mg/325mg) 1 tab PO Q4H PRN PRN Reason: for moderate pain Stop: 10/15/17 18:16 Last Admin: 08/17/17 12:21 Dose: 1 tab Docusate Sodium (Colace) 100 mg PO BID [facility] Stop: 10/16/17 08:59 Last Admin: 08/17/17 16:37 Dose: 100 mg Ferrous Sulfate (Iron) 325 mg PO BID [facility] Stop: 10/16/17 08:59 Last Admin: 08/17/17 16:35 Dose: 325 mg Furosemide (Lasix) 40 mg PO DAILY [facility] Stop: 10/16/17 08:59 Last Admin: 08/17/17 09:06 Dose: 40 mg Lactulose (Cephulac) 15 gm PO BID [facility] Stop: 10/16/17 08:59 Last Admin: 08/17/17 16:35 Dose: 15 gm Levothyroxine Sodium 0.025 mg/ (Levothyroxine Sodium 0.112 mg) 0.137 mg PO QDAC [facility] Stop: 10/16/17 07:29 Last Admin: 08/17/17 06:53 Dose: 0.137 mg Lorazepam (Ativan) 0.5 mg PO Q4HR PRN; Protocol PRN Reason: Anxiety Stop: 09/15/17 19:36 Last Admin: 08/17/17 16:38 Dose: 0.5 mg Metformin HCl (Glucophage) 500 mg PO BID [facility] Stop: 10/16/17 08:59 Last Admin: 08/17/17 16:36 Dose: 500 mg Mirtazapine (Remeron) 7.5 mg PO HS [facility] PRN Reason: Protocol Stop: 10/16/17 20:59 Naproxen (Naprosyn) 375 mg PO BID [facility] Stop: 10/16/17 08:59 Last Admin: 08/17/17 16:35 Dose: 375 mg Oxycodone HCl (Oxycontin) 20 mg PO Q12HR [facility] Stop: 10/15/17 20:59 Last Admin: 08/17/17 09:06 Dose: 20 mg Pantoprazole Sodium (Protonix) 40 mg PO QDAC [facility] Stop: 10/16/17 07:29 Last Admin: 08/17/17 06:53 Dose: 40 mg Simvastatin (Zocor) 20 mg PO HS [facility] Stop: 10/15/17 20:59 Last Admin: 08/16/17 21:15 Dose: 20 mg Temazepam (Restoril) 15 mg PO HS PRN; Protocol PRN Reason: Insomnia Stop: 10/15/17 18:16 Last Admin: 08/16/17 23:45 Dose: 15 mg Trazodone HCl (Desyrel) 150 mg PO HS PRN; Protocol PRN Reason: Insomnia Stop: 10/15/17 18:16 Last Admin: 08/16/17 23:36 Dose: 150 mg General: alert HEENT: NC/AT Neck: Supple Lungs: CTAB - Procedures Procedures: Procedures Procedure Code Date BLOOD TRANSFUSION SERVICE 40219 08/12/17 TRANSFUSE NONAUT RED BLOOD CELLS IN PERIPH VEIN, [facility] 77852D5 08/12/17 Internal Medicine Assmt/Plan - Assessment Assessment: chronic pain syndrome psychosis - Plan Plan: cpm
[2017-08-18] MEDS: Hydrocodone/APAP 5mg/325mg Tab PO PRN ×4 (01:38→16:21)
[2017-08-18] MEDS: Pantoprazole 40 mg EC Tab PO SCH (06:33)
[2017-08-18] MEDS: Lactulose 10 Gm/15 mL 30mL UDC PO SCH ×2 (08:52→16:12)
[2017-08-18] MEDS: Ferrous Sulfate 325 MG TAB PO SCH ×2 (08:53→16:21)
--- NOTE | 2017-08-18 12:38 | Progress Notes ---
DATE: 08/18/2017 Case discussed with staff of the patient and reviewed records. The patient reports she is not sleeping well because of the abdominal pain. She has been having this for years and apparently they tried to do a colonoscopy for her and she is also very anemic and had blood transfusion, she could not drink all the solution that she was supposed to do. So she can empty her bowel, so ended up cancelling the colonoscopy and she said she will do it later. She is eating well. She can eat certain things. So, she has to be careful, no side effects with the medication, no sedation, no nausea. She did tolerate taking her Klonopin at bedtime and give him Remeron instead to with nausea and depression, anxiety and also could help with pain and we will continue outpatient group therapy and therapy, adjust medications. JOB# [id number]
--- NOTE | 2017-08-18 14:22 | General Progress Note ---
Subjective - Review of Systems Events since last encounter: awake alert in no distress Objective - Physical Exam Vitals and I&O: Vital Signs Temp 97.6 F 08/18/17 06:38 Pulse 94 08/18/17 06:38 Resp 19 08/18/17 06:38 BP 134/75 08/18/17 08:52 Pulse Ox 98 08/18/17 06:38 Intake & Output 08/17/17 08/18/17 08/18/17 18:59 06:59 18:59 Intake Total 1200 120 Balance 1200 120 Intake: Oral 1200 120 Other: # Voids 2 2 Active Medications: Current Medications Acetaminophen/Hydrocodone Bitart ([place] 5mg/325mg) 1 tab PO Q4H PRN PRN Reason: for moderate pain Stop: 10/15/17 18:16 Last Admin: 08/18/17 11:26 Dose: 1 tab Docusate Sodium (Colace) 100 mg PO BID [facility] Stop: 10/16/17 08:59 Last Admin: 08/18/17 08:52 Dose: 100 mg Ferrous Sulfate (Iron) 325 mg PO BID [facility] Stop: 10/16/17 08:59 Last Admin: 08/18/17 08:53 Dose: 325 mg Furosemide (Lasix) 40 mg PO DAILY [facility] Stop: 10/16/17 08:59 Last Admin: 08/18/17 08:52 Dose: 40 mg Lactulose (Cephulac) 15 gm PO BID [facility] Stop: 10/16/17 08:59 Last Admin: 08/18/17 08:52 Dose: 15 gm Levothyroxine Sodium 0.025 mg/ (Levothyroxine Sodium 0.112 mg) 0.137 mg PO QDAC [facility] Stop: 10/16/17 07:29 Last Admin: 08/18/17 06:33 Dose: 0.137 mg Lorazepam (Ativan) 0.5 mg PO Q4HR PRN; Protocol PRN Reason: Anxiety Stop: 09/15/17 19:36 Last Admin: 08/18/17 11:27 Dose: 0.5 mg Metformin HCl (Glucophage) 500 mg PO BID [facility] Stop: 10/16/17 08:59 Last Admin: 08/18/17 08:53 Dose: 500 mg Mirtazapine (Remeron) 7.5 mg PO HS [facility] PRN Reason: Protocol Stop: 10/16/17 20:59 Last Admin: 08/17/17 21:37 Dose: Not Given Naproxen (Naprosyn) 375 mg PO BID [facility] Stop: 10/16/17 08:59 Last Admin: 08/18/17 08:53 Dose: 375 mg Oxycodone HCl (Oxycontin) 20 mg PO Q12HR [facility] Stop: 10/15/17 20:59 Last Admin: 08/18/17 08:53 Dose: 20 mg Pantoprazole Sodium (Protonix) 40 mg PO QDAC [facility] Stop: 10/16/17 07:29 Last Admin: 08/18/17 06:33 Dose: 40 mg Simvastatin (Zocor) 20 mg PO HS [facility] Stop: 10/15/17 20:59 Last Admin: 08/17/17 21:30 Dose: 20 mg Temazepam (Restoril) 15 mg PO HS PRN; Protocol PRN Reason: Insomnia Stop: 10/15/17 18:16 Last Admin: 08/18/17 01:38 Dose: 15 mg Trazodone HCl (Desyrel) 150 mg PO HS PRN; Protocol PRN Reason: Insomnia Stop: 10/15/17 18:16 Last Admin: 08/17/17 22:16 Dose: 150 mg - Procedures Procedures: Procedures Procedure Code Date BLOOD TRANSFUSION SERVICE 31154 08/12/17 INTRODUCTION OF SERUM/TOX/VACCINE INTO MUSCLE, [facility] APPROACH [id number] 08/12/17 TRANSFUSE NONAUT RED BLOOD CELLS IN PERIPH VEIN, [facility] 39809S5 08/12/17 Assessment/Plan - Assessment Assessment: chronic pain syndrome psychosis - Plan Plan: cpm
[2017-08-19] MEDS: Hydrocodone/APAP 5mg/325mg Tab PO PRN ×2 (03:59→13:15)
[2017-08-19] MEDS: Pantoprazole 40 mg EC Tab PO SCH (06:39)
[2017-08-19] MEDS: Ferrous Sulfate 325 MG TAB PO SCH ×2 (09:02→16:50)
[2017-08-19] MEDS: Lactulose 10 Gm/15 mL 30mL UDC PO SCH ×2 (09:02→16:51)
--- NOTE | 2017-08-19 09:47 | General Progress Note ---
Subjective - Review of Systems Events since last encounter: patient awake seems depressed denies pain Objective - Physical Exam Vitals and I&O: Vital Signs Temp 97.6 F 08/19/17 07:03 Pulse 98 08/19/17 07:03 Resp 20 08/19/17 07:03 BP 115/67 08/19/17 09:02 Pulse Ox 98 08/19/17 07:03 Intake & Output 08/18/17 08/19/17 08/19/17 18:59 06:59 18:59 Intake Total 1200 120 Balance 1200 120 Intake: Oral 1200 120 Other: # Voids 3 3 # Bowel Movements 1 Active Medications: Current Medications Acetaminophen/Hydrocodone Bitart ([place] 5mg/325mg) 1 tab PO Q4H PRN PRN Reason: for moderate pain Stop: 10/15/17 18:16 Last Admin: 08/19/17 03:59 Dose: 1 tab Docusate Sodium (Colace) 100 mg PO BID [facility] Stop: 10/16/17 08:59 Last Admin: 08/19/17 09:02 Dose: 100 mg Ferrous Sulfate (Iron) 325 mg PO BID [facility] Stop: 10/16/17 08:59 Last Admin: 08/19/17 09:02 Dose: 325 mg Furosemide (Lasix) 40 mg PO DAILY [facility] Stop: 10/16/17 08:59 Last Admin: 08/19/17 09:02 Dose: 40 mg Lactulose (Cephulac) 15 gm PO BID [facility] Stop: 10/16/17 08:59 Last Admin: 08/19/17 09:02 Dose: 15 gm Levothyroxine Sodium 0.025 mg/ (Levothyroxine Sodium 0.112 mg) 0.137 mg PO QDAC [facility] Stop: 10/16/17 07:29 Last Admin: 08/19/17 06:38 Dose: 0.137 mg Lorazepam (Ativan) 0.5 mg PO Q4HR PRN; Protocol PRN Reason: Anxiety Stop: 09/15/17 19:36 Last Admin: 08/19/17 05:33 Dose: 0.5 mg Metformin HCl (Glucophage) 500 mg PO BID [facility] Stop: 10/16/17 08:59 Last Admin: 08/19/17 09:01 Dose: 500 mg Mirtazapine (Remeron) 7.5 mg PO HS [facility] PRN Reason: Protocol Stop: 10/16/17 20:59 Last Admin: 08/18/17 20:33 Dose: Not Given Naproxen (Naprosyn) 375 mg PO BID [facility] Stop: 10/16/17 08:59 Last Admin: 08/19/17 09:02 Dose: 375 mg Oxycodone HCl (Oxycontin) 20 mg PO Q12HR [facility] Stop: 10/15/17 20:59 Last Admin: 08/19/17 09:02 Dose: 20 mg Pantoprazole Sodium (Protonix) 40 mg PO QDAC [facility] Stop: 10/16/17 07:29 Last Admin: 08/19/17 06:39 Dose: 40 mg Simvastatin (Zocor) 20 mg PO HS [facility] Stop: 10/15/17 20:59 Last Admin: 08/18/17 20:32 Dose: 20 mg Temazepam (Restoril) 15 mg PO HS PRN; Protocol PRN Reason: Insomnia Stop: 10/15/17 18:16 Last Admin: 08/18/17 01:38 Dose: 15 mg Trazodone HCl (Desyrel) 150 mg PO HS PRN; Protocol PRN Reason: Insomnia Stop: 10/15/17 18:16 Last Admin: 08/19/17 00:00 Dose: 150 mg - Procedures Procedures: Procedures Procedure Code Date BLOOD TRANSFUSION SERVICE 32530 08/12/17 INTRODUCTION OF SERUM/TOX/VACCINE INTO MUSCLE, [facility] APPROACH [id number] 08/12/17 TRANSFUSE NONAUT RED BLOOD CELLS IN PERIPH VEIN, [facility] [id number] 08/12/17 Assessment/Plan - Assessment Assessment: chronic pain syndrome psychosis - Plan Plan: cpm
--- NOTE | 2017-08-20 00:46 | Progress Notes ---
DATE: 08/19/2017 Case was discussed with staff of the patient, reviewed records. The patient today is very anxious to leave. I have talked to her, she denied that she wants to harm herself or anybody. She reports no auditory or visual hallucination. I explained to her, she wants to collect Klonopin and I disclaim to her why I am not giving her the Klonopin. She says she took it for years. However, I explained to her that she is addictive and apparently the patient according to staff has a history of addiction and has been sleeping well and doing very well on the current dose of Remeron and does not appear to be anxious. She is sleeping well, eating well. So, I explained to her that she should not be using addictive medications because of her history of addiction where she is denying that according to staff, the staff has noted her history, but anyway also her hold today. She reports that she does have a place to go and the staff is working hard on sending her to a correction and they having hard time. The patient was living in a hotel, but she reports she does not want to go to hotel because she cannot take all her belongings and she is okay to live in a hotel. The staff report, they think from her behavior, she can live in a hotel. However, the patient with the hold ____ either sign voluntary and have her leave against medical advice if she wants to go to a hotel. So at this point, if not and she feels if she change her mind about living in a hotel, then we could extend the hold ____ no place to go, but at this point, I do not have any criteria to extend the hold and so far no side effects with the medication, no sedation, no nausea and she is only on the Remeron and she is on Ativan on as needed basis. Advised the patient that this will not be given halfway, only for the meantime, and we will continue to work with the patient in group therapy, milieu therapy and adjust the medication as needed. JOB# [id number]
[2017-08-20] MEDS: Hydrocodone/APAP 5mg/325mg Tab PO PRN ×2 (00:48→06:15)
[2017-08-20] MEDS: Pantoprazole 40 mg EC Tab PO SCH (06:35)
[2017-08-20] MEDS: Ferrous Sulfate 325 MG TAB PO SCH (08:33)
[2017-08-20] MEDS: Lactulose 10 Gm/15 mL 30mL UDC PO SCH (08:35)
--- NOTE | 2017-08-20 14:27 | Discharge Summary ---
DATE OF DISCHARGE: 08/20/2017 The patient was admitted on the 08/16/2017 and discharged to a nursing facility in the night on the 08/20/2017. IDENTIFYING INFORMATION: The patient is a 67 years old female. HISTORY OF PRESENT ILLNESS: The patient was transferred from the medical floor. Apparently, the patient was agitated, aggressive towards staff at [facility] consistently yelling and screaming and threatening staff in a hostile manner, has been anxious. The patient never tell me that; however, when she was about to be discharged, it seemed like she was evaluated by Lio, who is in charge of the [facility] and they felt that they cannot send anywhere because of her aggressive behavior. She has no place to go and she was acting agitated. The patient when I talked to minimize the event, she said she did not know anything about it or anything was wrong and that; however, she admitted that they made her very angry. She did not tell me the details of what happened. The patient apparently has been med seeking according to the staff and they do believe that she has a history of being addicted to drugs and she is in pain and need to be on pain medication. I told her that will be left up to the medical doctor. And upon admission when I first evaluated her, she was at the nurses' station demanding to be on Ativan. She denies any auditory or visual hallucination or paranoia. She has difficulty with sleep and appetite, problem with her stomach, chronically anemic. Denies any intent to harm anybody. The patient reports she was hospitalized before. She was delusional. She thought César Espinoza was her telegraph inspector. She denies prior suicide attempt; however, she was not reliable historian. [facility] they tried to do colonoscopy, could not finish drinking the solution, so it was canceled. She had to be given blood transfusion. She had problem, she cannot walk on her left foot, she hops, but she reports that is because of an accident. COURSE IN THE HOSPITAL: I took her off the Klonopin, instead I gave her Remeron which will help with her anxiety and depression and sleep. She was kept on the Ativan on an as needed basis. The staff told she continues to be med seeking. They think that the patient did find out about not been on Klonopin for 2 days and then she started demanding as while the previous 2 days, she was saying she was sleeping well and so I explained to her my rationale as I do not like her to be on addictive medications, especially with her history and that Remeron helped as much as Klonopin would and it did help as she was able to sleep well, had no complaints till she found out she is not taking Klonopin anymore. She is sleeping well, eating well. We had no criteria to keep her against her will, so she managed to sign voluntary. We were able to find her a residential in [place]. So as the patient was doing well, she was no longer acting in anyway hostile, though she was demanding certain medication, especially pain medications and addictive medications. We felt she was at her basic level of functioning. FINAL DIAGNOSIS: AXIS I: Major depression, recurrent, with no psychosis, rule out bipolar disorder. MEDICAL DIAGNOSIS: Severe anemia, status post cancer. The patient will be going to [place]. We will follow with the psychiatrist and medical doctor there. EXPECTED OUTCOME: Stable if the patient complies with the above. JOB# [id number]
== END 2017-08-20 11:15 | DRG 885 ==
LOC: GERO 17:03
PROVIDERS: ADMIT Psychiatry & Neurology Psychiatry; ATTEND Psychiatry & Neurology Psychiatry
DX: F31.30 Bipolar disorder, current episode depressed, mild or moderate severity, unspecified (principal); F23 Brief psychotic disorder; G89.4 Chronic pain syndrome; D64.9 Anemia, unspecified; F41.9 Anxiety disorder, unspecified; Z87.11 Personal history of peptic ulcer disease; Z76.5 Malingerer [conscious simulation]; Z88.8 Allergy status to other drugs, medicaments and biological substances; Z90.710 Acquired absence of both cervix and uterus; Z79.899 Other long term (current) drug therapy
CPT/HCPCS: Z7610